=== PATIENT | female | born 1950 | race Caucasian/White ===

== ENCOUNTER 2019-10-18 20:01 | Emergency (ER) | payer SELFPAY ==
[~2019-10-18] VITALS: Ht 162.6 cm; Wt 72.6 kg
[2019-10-18 20:01] VITALS: BP_SYST 0
[2019-10-18] MEDS ORDERED: EPINEPHrine JECT 0.1 MG/ML SYR ONE (23:00)
[2019-10-18] MEDS ORDERED: NS 1000 ML IV.SOLN IV ONE (23:00)
[2019-10-18] MEDS ORDERED: CALCIUM CHLORIDE 1 GM/10 ML DISP.SYRIN (14 mEq Ca++/SYR) ONE (23:00)
[2019-10-18] MEDS ORDERED: SODIUM BICARBONATE 8.4% JECT 50 MEQ/50 ML SYRINGE ONE (23:00)
== END 2019-10-18 22:44 | disposition expired ==
LOC: SED 20:01
DX: I46.9 Cardiac arrest, cause unspecified (principal)
CPT/HCPCS: 92950; 99285; J0171; J7030